=== PATIENT | female | born 1945 | race Hispanic/Latino ===

== ENCOUNTER 2021-03-15 09:57 | Inpatient (IN) | payer MEDICAID ==
[~2021-03-15] VITALS: Ht 157.5 cm; Wt 59.0 kg
[2021-03-15 11:15] LABS: BASOPHILS % 0.2 % (0.0-1.0); EOSINOPHILS % 0.3 % (0.0-6.0); HEMATOCRIT 42.4 % (34.2-44.1); HEMOGLOBIN 14.3 g/dL (12.0-16.0); LYMPHOCYTES # (AUTO) 1.7 (1.0-3.2); LYMPHOCYTES % 15.8 % (18.0-39.1); MEAN CORPUSCULAR HEMOGLOBIN 33.5 pg (28-32); MEAN CORPUSCULAR HGB CONC 33.7 g/dL (31-35); MEAN CORPUSCULAR VOLUME 99.3 fL (81-99); MONOCYTES # (AUTO) 0.7 (0.2-0.8); MONOCYTES % 6.1 % (4.4-11.3); NEUTROPHILS # (AUTO) 8.3 (2.1-6.9); NEUTROPHILS % 77.2 % (38.7-80.0); PLATELET COUNT 183 x10e3/uL (140-360); RED BLOOD COUNT 4.27 x10e6/uL (3.6-5.1); RED CELL DISTRIBUTION WIDTH 12.4 % (11.7-14.4)
[2021-03-15 11:20] LABS: CLARITY,URINE TURBID (CLEAR); COLOR,URINE YELLOW (YELLOW); KETONES,URINE 1+ (NEGATIVE); LEUKOCYTE ESTERASE ,URINE SMALL (NEGATIVE); NITRITE,URINE NEGATIVE (NEGATIVE); PROTEIN,URINE DIPSTICK TRACE (NEGATIVE)
[2021-03-15 11:26] LABS: BACTERIA,URINE MANY /HPF; EPITHELIAL CELLS,URINE FEW /LPF; RBC,URINE 0-5 /HPF (0-5)
[2021-03-15 12:13] LABS: INR 1.04
[2021-03-15 12:14] LABS: PARTIAL THROMBOPLASTIN TIME 25.9 seconds (23.8-35.5)
[2021-03-15 12:22] LABS: ALANINE AMINOTRANSFERASE 17 IU/L (0-55); ALBUMIN 3.2 g/dL (3.5-5.0); ANION GAP 13.5 mmol/L (8-16); BLOOD UREA NITROGEN 16 mg/dL (7-26); BUN/CREATININE RATIO 29 (6-25); CALCIUM 8.5 mg/dL (8.4-10.2); CARBON DIOXIDE 26 mmol/L (22-29); CHLORIDE 105 mmol/L (98-107); CREATININE, SERUM 0.56 mg/dL (0.57-1.11); EST GLOMERULAR FILTRATION RATE 105 ML/MIN (60-); GLUCOSE 102 mg/dL (74-118); MAGNESIUM 2.2 MG/DL (1.3-2.1); POTASSIUM 3.5 mmol/L (3.5-5.1); SODIUM 141 mmol/L (136-145)
[2021-03-15 12:23] LABS: ALBUMIN/GLOBULIN RATIO 1.1 (0.8-2.0); ALKALINE PHOSPHATASE 89 IU/L (40-150); CREATINE KINASE 11 IU/L (29-168)
[2021-03-15] MEDS ORDERED: HYDRALAZINE HCL 20 MG/ML VIAL IV NR (12:30)
[2021-03-15] MEDS ORDERED: ONDANSETRON HCL INJ 2MG/ML 2ML 2 MG/ML VIAL IV PRN (13:00)
[2021-03-15] MEDS: PIPERACILLIN/TAZOBACTAM 3.375 GM in SODIUM CHLORIDE 0.9% 50ML 50 ML IV SCH ×2 (13:28→18:08)
[2021-03-15] MEDS ORDERED: LEVETIRACETAM 500MG/5ML VIAL 1,000 MG in SODIUM CHLORIDE 0.9% 100 ML 100 ML IV ONE (13:45)
[2021-03-15 15:00] VITALS: BP 119/63
[2021-03-15 15:30] VITALS: BP 119/63
[2021-03-15] MEDS ORDERED: SODIUM CHLORIDE 0.9% 50ML 50 ML ONE (16:00)
[2021-03-15 18:48] LABS: CREATINE KINASE 14 IU/L (29-168)
[2021-03-15 20:10] VITALS: BP 162/105
[2021-03-15 21:00] VITALS: BP 162/105
[2021-03-15] MEDS: DEXTROSE 5%/0.45% SOD CHL 1,000 ML IV SCH (22:50)
[2021-03-16] VITALS (9 sets, daily range): BP systolic 126–193; BP diastolic 56–110
[2021-03-16] MEDS: ALBUTEROL SULF 0.083% NEB SOLN 3 ML NEB NEB SCH (01:00)
[2021-03-16] MEDS ORDERED: HYDRALAZINE HCL 20 MG/ML VIAL IV PRN (01:00)
[2021-03-16] MEDS ORDERED: LEVETIRACETAM 500MG/5ML VIAL 500 MG in SODIUM CHLORIDE 0.9% 100 ML 100 ML IV SCH (02:00)
[2021-03-16] MEDS ORDERED: LEVETIRACETAM 500MG/5ML VIAL 500 MG in SODIUM CHLORIDE 0.9% 100 ML IV ONE (02:00)
[2021-03-16 02:38] LABS: CREATINE KINASE MB 0.8 ng/mL (0-5.0)
[2021-03-16] MEDS ORDERED: SODIUM CHLORIDE 0.9% 100 ML ONE (03:02)
[2021-03-16 04:32] LABS: ALBUMIN 2.9 g/dL (3.5-5.0); ANION GAP 15.5 mmol/L (8-16); CALCIUM 8.6 mg/dL (8.4-10.2); CHOL/HDL RATIO 2.5 (3.0-3.6); CREATININE, SERUM 0.59 mg/dL (0.57-1.11); POTASSIUM 3.5 mmol/L (3.5-5.1)
[2021-03-16 09:07] LABS: BASOPHILS % 0.3 % (0.0-1.0); HEMATOCRIT 39.5 % (34.2-44.1); HEMOGLOBIN 12.9 g/dL (12.0-16.0); LYMPHOCYTES # (AUTO) 1.1 (1.0-3.2); LYMPHOCYTES % 10.9 % (18.0-39.1); MEAN CORPUSCULAR HEMOGLOBIN 33.2 pg (28-32); MEAN CORPUSCULAR HGB CONC 32.7 g/dL (31-35); MEAN CORPUSCULAR VOLUME 101.8 fL (81-99); MONOCYTES # (AUTO) 0.5 (0.2-0.8); MONOCYTES % 4.9 % (4.4-11.3); NEUTROPHILS # (AUTO) 8.5 (2.1-6.9); NEUTROPHILS % 83.2 % (38.7-80.0); PLATELET COUNT 111 x10e3/uL (140-360); RED BLOOD COUNT 3.88 x10e6/uL (3.6-5.1); RED CELL DISTRIBUTION WIDTH 12.4 % (11.7-14.4)
[2021-03-16 09:36] LABS: CREATINE KINASE 21 IU/L (29-168)
[2021-03-16 10:06] LABS: ALBUMIN 2.8 g/dL (3.5-5.0); ANION GAP 13.4 mmol/L (8-16); CALCIUM 8.1 mg/dL (8.4-10.2); CREATININE, SERUM 0.52 mg/dL (0.57-1.11); POTASSIUM 3.4 mmol/L (3.5-5.1)
[2021-03-16] MEDS: LEVETIRACETAM 500MG/5ML VIAL 500 MG in SODIUM CHLORIDE 0.9% 100 ML 100 ML IV SCH (13:52)
[2021-03-16] MEDS ORDERED: POTASSIUM CHLORIDE 20MEQ/100ML 100 ML IV ONE (18:15)
[2021-03-16] MEDS: DEXTROSE 5%/0.45% SOD CHL 1,000 ML IV SCH (19:55)
[2021-03-17] VITALS (8 sets, daily range): BP systolic 150–179; BP diastolic 71–97
[2021-03-17] MEDS: LEVETIRACETAM 500MG/5ML VIAL 500 MG in SODIUM CHLORIDE 0.9% 100 ML 100 ML IV SCH ×2 (01:13→14:00)
[2021-03-17] MEDS ORDERED: ACETAMINOPHEN 325 MG TAB PO PRN (12:30)
[2021-03-17] MEDS ORDERED: ACETAMINOPHEN/CODEINE 300MG - 30MG TAB PO PRN (12:30)
[2021-03-17] MEDS: LOSARTAN POTASSIUM 25 MG TAB PO SCH (14:00)
[2021-03-17] MEDS: DEXTROSE 5%/0.45% SOD CHL 1,000 ML IV SCH (18:26)
[2021-03-17] MEDS ORDERED: LOSARTAN POTASSIUM 25 MG TAB PO ONE (22:00)
[2021-03-18] VITALS (9 sets, daily range): BP systolic 135–201; BP diastolic 69–99
[2021-03-18] MEDS: HYDRALAZINE HCL 20 MG/ML VIAL IV PRN (00:46)
[2021-03-18] MEDS: LEVETIRACETAM 500MG/5ML VIAL 500 MG in SODIUM CHLORIDE 0.9% 100 ML 100 ML IV SCH (02:26)
[2021-03-18] MEDS: LOSARTAN POTASSIUM 25 MG TAB PO SCH (08:24)
[2021-03-18] MEDS: DEXTROSE 5%/0.45% SOD CHL 1,000 ML IV SCH (10:15)
[2021-03-18] MEDS ORDERED: LEVETIRACETAM500 MG PO (15:00)
[2021-03-18] MEDS ORDERED: AMOXICILLIN250 MG PO (15:08)
[2021-03-18] MEDS ORDERED: AMOXICILLIN 250 MG CAP PO SCH (17:00)
[2021-03-18] MEDS: LEVETIRACETAM 500 MG TAB PO SCH (20:04)
[2021-03-18] MEDS ORDERED: LOSARTAN POTASSIUM 25 MG TAB PO ONE (20:15)
[2021-03-18] MEDS: MELATONIN 5 MG TABLET PO PRN (22:10)
[2021-03-19] VITALS (8 sets, daily range): BP systolic 120–211; BP diastolic 62–116
[2021-03-19] MEDS: AMOXICILLIN 250 MG CAP PO SCH ×3 (04:20→20:30)
[2021-03-19] MEDS: HYDRALAZINE HCL 20 MG/ML VIAL IV PRN (04:20)
[2021-03-19] MEDS: DEXTROSE 5%/0.45% SOD CHL 1,000 ML IV SCH ×2 (06:15→21:06)
[2021-03-19] MEDS: ALBUTEROL SULF 0.083% NEB SOLN 3 ML NEB NEB SCH ×3 (07:00→21:00)
[2021-03-19] MEDS: LOSARTAN POTASSIUM 25 MG TAB PO SCH (08:37)
[2021-03-19] MEDS: LEVETIRACETAM 500 MG TAB PO SCH ×2 (08:37→17:30)
[2021-03-19] MEDS ORDERED: AMLODIPINE BESYLATE 5 MG TAB PO PRN (10:15)
[2021-03-19] MEDS ORDERED: ONDANSETRON HCL 4 MG ORAL DISINTEGRATING TAB PO PRN (11:00)
[2021-03-19] MEDS: CHLORTHALIDONE 25 MG TAB PO SCH (11:13)
[2021-03-19] MEDS: MELATONIN 5 MG TABLET PO PRN (20:30)
[2021-03-20] VITALS: BP 164/97
[2021-03-20 04:00] VITALS: BP 155/80
[2021-03-20] MEDS: AMOXICILLIN 250 MG CAP PO SCH ×2 (04:00→11:37)
[2021-03-20 08:00] VITALS: BP 147/72
[2021-03-20] MEDS: LEVETIRACETAM 500 MG TAB PO SCH (08:10)
[2021-03-20] MEDS: CHLORTHALIDONE 25 MG TAB PO SCH (08:10)
[2021-03-20 08:40] VITALS: BP 147/72
[2021-03-20] MEDS ORDERED: LOSARTAN POTASSIUM 25 MG TAB PO SCH (09:00)
[2021-03-20] MEDS ORDERED: HYGROTON25 MG PO (11:25)
[2021-03-20] MEDS ORDERED: NORVASC5 MG PO (11:25)
[2021-03-20 13:00] VITALS: BP 139/69
[2021-03-20 20:00] VITALS: BP 119/74
== END 2021-03-20 15:51 | disposition home or self-care (01) | DRG 100 ==
LOC: ER 10:49 → ERHOLD 13:21 → MED/SURG3 14:54
PROVIDERS: ADMIT Internal Medicine; ATTEND Internal Medicine
DX: R56.9 Unspecified convulsions (principal); J18.9 Pneumonia, unspecified organism; K92.2 Gastrointestinal hemorrhage, unspecified; J01.90 Acute sinusitis, unspecified; G30.9 Alzheimer's disease, unspecified; F02.80 Dementia in other diseases classified elsewhere, unspecified severity, without behavioral disturbance, psychotic disturbance, mood disturbance, and anxiety; I10 Essential (primary) hypertension; B95.4 Other streptococcus as the cause of diseases classified elsewhere; Z20.822 Contact with and (suspected) exposure to COVID-19
CPT/HCPCS: 36415; 51700; 70450; 71045; 80053; 80061; 81001; 82270; 82542; 82550; 82553; 83735; 83880; 84484; 85025; 85610; 85730; 87040; 87086; 93005; 93306; 96361; 99284; J0360; J0456; J2543; J3480; J7050; U0002

== ENCOUNTER 2021-06-06 16:02 | Emergency (ER) | payer SELFPAY ==
[~2021-06-06] VITALS: Ht 157.5 cm; Wt 59.0 kg
[~2021-06-06 16:02] MED LIST: AMOXICILLIN250 MG PO; HYGROTON25 MG PO; LEVETIRACETAM500 MG PO; NORVASC5 MG PO
[2021-06-06] MEDS ORDERED: SODIUM CHLORIDE 0.9% 1000ML 1,000 ML IV SCH (16:45)
[2021-06-06 16:59] LABS: BASOPHILS % 0.1 % (0.0-1.0); HEMATOCRIT 47.8 % (34.2-44.1); HEMOGLOBIN 15.6 g/dL (12.0-16.0); LYMPHOCYTES # (AUTO) 0.8 (1.0-3.2); LYMPHOCYTES % 7.9 % (18.0-39.1); MEAN CORPUSCULAR HEMOGLOBIN 33.5 pg (28-32); MEAN CORPUSCULAR HGB CONC 32.6 g/dL (31-35); MEAN CORPUSCULAR VOLUME 102.8 fL (81-99); MONOCYTES # (AUTO) 0.5 (0.2-0.8); MONOCYTES % 5.2 % (4.4-11.3); NEUTROPHILS # (AUTO) 8.3 (2.1-6.9); NEUTROPHILS % 86.3 % (38.7-80.0); PLATELET COUNT 215 x10e3/uL (140-360); RED BLOOD COUNT 4.65 x10e6/uL (3.6-5.1); RED CELL DISTRIBUTION WIDTH 12.7 % (11.7-14.4)
[2021-06-06 17:17] LABS: ALBUMIN 2.9 g/dL (3.5-5.0); ALBUMIN/GLOBULIN RATIO 0.7 (0.8-2.0); ANION GAP 13.6 mmol/L (8-16); CALCIUM 9.6 mg/dL (8.4-10.2); CREATININE, SERUM 1.01 mg/dL (0.57-1.11)
[2021-06-06 17:22] LABS: POTASSIUM 2.6 mmol/L (3.5-5.1)
[2021-06-06 18:59] VITALS: BP 110/75
== END 2021-06-06 20:21 | disposition home or self-care (01) ==
LOC: ER 16:15
DX: R62.7 Adult failure to thrive (principal); E86.0 Dehydration; G30.9 Alzheimer's disease, unspecified; F02.80 Dementia in other diseases classified elsewhere, unspecified severity, without behavioral disturbance, psychotic disturbance, mood disturbance, and anxiety; I10 Essential (primary) hypertension
CPT/HCPCS: 36415; 80053; 85025; 99284; J7030